=== PATIENT | male | born 1990 | race Caucasian/White ===

== ENCOUNTER 2017-11-11 08:26 | Day surgery (SDC) | payer OTHER, SELFPAY ==
[2017-11-10 07:59] VITALS: BMI 27.8
[2017-11-11] VITALS (8 sets, daily range): BP systolic 127–163; BP diastolic 80–102; PULSE 71–98; RESP 10–17; TEMP 36.2–37.2; O2SAT 92–99; BMI 27.8
[2017-11-11] MEDS: LACTATED RINGERS 1,000 ML 100 ML IV (08:50)
[2017-11-11] MEDS: CEFAZOLIN 2 GM/100 ML FROZ.PIGGY IV (11:33)
--- NOTE | 2017-11-11 12:06 | SUR.OPER ---
Supine on padded OR bed, head on pillow, right arm extended on the padded arm board less 90 degrees; left arm padded and tucked at side, legs uncrossed, safety belt at thigh, tape over blanket over lower legs .
[2017-11-11] MEDS: BUPIVACAINE 0.25% W/ EPI VIAL 50 ML INJ (12:17)
[2017-11-11] MEDS: fentaNYL 100 MCG/2 ML INJ 50 MCG IV ×2 (13:13→13:20)
[2017-11-11] MEDS: ONDANSETRON 4 MG/2 ML INJ IV (13:15)
--- NOTE | 2017-11-11 13:15 | PM.OP.1 ---
Operative Date/Time/Diagnoses Date of procedure: 11/11/17 Time of procedure: 13:15 Pre-op diagnosis: Right inguinal hernia 99498 Removal large Right cord lipoma 09381 Post-op diagnosis: other (Right large cord lipoma) Procedure & Clinicians Procedure: Laparoscopic Right inguinal hernia with mesh 41938 removal large Right cord lipoma 61320 Same procedure as scheduled: Yes Indications: Symptomatic RIH Surgeon: Chas Jerome Click Yes if Unassisted: Yes Anesthesia Type: General Operative Notes Closure Type: primary Specimen(s): none sent Blood products transfused: none Condition: stable Disposition: PACU Plan for aftercare: Follow up in 1-2 weeks Avoid heavy lifting for 1 week Avoid constipation, miralax, hydration
[2017-11-11] MEDS: HYDROCODONE/ACET 5/325 TABLET 1 TAB PO (13:52)
--- NOTE | 2017-11-11 14:55 | SUR.PHASEII ---
This author only charted on this pt. for another RN (Karlie) this author did not pt. care directly.
== END 2017-11-11 14:56 | disposition home or self-care (01) ==
PROVIDERS: PCP Physician Assistant; Visit Provider Surgery
PROC: 0YQ54ZZ Repair Right Inguinal Region, Percutaneous Endoscopic Approach (ICD-10-PCS; CPT 49650; principal; 2017-11-11 10:15)
DX: K40.90 Unilateral inguinal hernia, without obstruction or gangrene, not specified as recurrent (principal); D17.6 Benign lipomatous neoplasm of spermatic cord; F17.210 Nicotine dependence, cigarettes, uncomplicated
CPT/HCPCS: 49650; C1781; J0690; J1100; J1885; J2405; J2704; J3010